=== PATIENT | female | born 1970 | race Two or more races ===

== ENCOUNTER 2024-03-05 13:58 | Emergency (ER) | payer OTHER ==
[~2024-03-05] VITALS: Ht 162.6 cm; Wt 108.9 kg
[2024-03-05] MEDS ORDERED: ONDANSETRON HCL/PF 4 MG/2 ML VIAL ONE (14:13)
[2024-03-05] MEDS ORDERED: MORPHINE SULFATE INJ 4 MG/ML DISP.SYRIN ONE (14:14)
[2024-03-05] MEDS ORDERED: MORPHINE SULFATE INJ 2 MG/ML DISP.SYRIN ONE (14:14)
[2024-03-05] MEDS: MORPHINE SULFATE INJ 2 MG/ML DISP.SYRIN IV ONE (14:18)
[2024-03-05] MEDS: ONDANSETRON HCL/PF 4 MG/2 ML VIAL IVP ONE (14:19)
[2024-03-05] MEDS ORDERED: IOHEXOL-300 100 ML VIAL IV ONE (14:41)
[2024-03-05] MEDS ORDERED: CT SWABBABLE VALVE TRANS SET 1 EA INFUS.SET MC ONE (14:41)
[2024-03-05] MEDS ORDERED: IV NS 0.9% 250 ML IV ONE (14:41)
[2024-03-05 14:42] LABS: BASOPHILS # (AUTO) 0.1 K/uL (0.0-0.2); BASOPHILS % (AUTO) 0.4 % (0.0-2.0); EOSINOPHILS # (AUTO) 0.1 K/uL (0.0-0.7); EOSINOPHILS % (AUTO) 0.4 % (0.0-6.0); HEMATOCRIT 42 % (33-45); HEMOGLOBIN 13.7 g/dL (11.5-14.8); LYMPHOCYTES # (AUTO) 1.2 K/uL (0.8-4.8); LYMPHOCYTES % (AUTO) 8.8 % (20.0-44.0); MEAN CORPUSCULAR HEMOGLOBIN 29 PG (26.0-33.0); MEAN CORPUSCULAR HGB CONC 33 g/dl (31.0-36.0); MEAN CORPUSCULAR VOLUME 86 fL (82-100); MONOCYTES # (AUTO) 0.6 K/uL (0.1-1.30); MONOCYTES % (AUTO) 4.1 % (2.0-12.0); NEUTROPHILS % (AUTO) 86.3 % (43.0-81.0); PLATELET COUNT (AUTO) 270 K/uL (150-450); RED BLOOD CELL COUNT(AUTO) 4.82 MIL/uL (4.0-5.2); RED CELL DISTRIBUTION WIDTH 14.1 % (11.5-15.0); WHITE BLOOD COUNT (AUTO) 13.9 K/uL (4.3-11.0)
[2024-03-05 15:01] LABS: CALCIUM, SERUM 8.5 mg/dL (8.5-10.1); CARBON DIOXIDE 26 mmol/L (21-32); CHLORIDE 104 mmol/L (98-107); CREATININE 0.8 mg/dL (0.6-1.3); GLUCOSE 147 mg/dL (74-106); POTASSIUM 3.8 mmol/L (3.5-5.1); SODIUM SERUM 141 mmol/L (136-145); UREA NITROGEN, BLOOD 12 mg/dL (7-18)
[2024-03-05 15:11] LABS: ALANINE AMINOTRANSFERASE 19 U/L (12-78); ALBUMIN 3.2 g/dL (3.4-5.0); ALKALINE PHOSPHATASE 88 U/L (46-116); ASPARTATE AMINOTRANSFERASE 14 U/L (15-37); BILIRUBIN,DIRECT 0.1 mg/dL (0.0-0.2); BILIRUBIN,TOTAL 0.2 mg/dL (0.2-1.0); LIPASE 28 U/L (16-77); TOTAL PROTEIN, SERUM 7.8 g/dL (6.4-8.2)
[2024-03-05 15:12] LABS: LACTIC ACID 3.2 mmol/L (0.4-2.0)
[2024-03-05] MEDS: PIPERACILLIN /TAZOBACTAM 3.375 G in IV D5W 50 ML IV ONE (15:50)
[2024-03-05] MEDS: VANCOMYCIN 1 GM in IV D5W 250 ML IV ONE (16:02)
[2024-03-05] MEDS ORDERED: diphenhydrAMINE HCL 50 MG/ML VIAL ONE (17:20)
[2024-03-05] MEDS ORDERED: methylPREDNISolone SOD SUCC 125 MG/2ML VIAL ONE (17:21)
[2024-03-05] MEDS: diphenhydrAMINE HCL 50 MG/ML VIAL IV ONE (17:26)
[2024-03-05 17:27] LABS: APPEARANCE,URINE CLEAR (CLEAR); BILIRUBIN,URINE NEGATIVE (NEGATIVE); BLOOD, URINE TRACE-INTA Ery/uL (NEGATIVE); COLOR,URINE YELLOW (YELLOW); KETONES,URINE NEGATIVE (NEGATIVE); LEUKOCYTE ESTERASE ,URINE NEGATIVE (NEGATIVE); NITRITE, URINE NEGATIVE (NEGATIVE); PROTEIN,URINE NEGATIVE (NEGATIVE); UGLUCOSE NEGATIVE (NEGATIVE); UROBILINOGEN,URINE 0.2 EU/dL (0.2)
[2024-03-05] MEDS: methylPREDNISolone SOD SUCC 125 MG/2ML VIAL IV ONE (17:27)
[2024-03-05 17:32] LABS: ADD URINE CULTURE NO; BACTERIA,URINE Few /HPF (None Seen); SQUAMOUS EPITHELIAL CELL,UR Few /HPF (None Seen); WBC,URINE 0-2 /HPF (0-3)
[2024-03-05 18:07] VITALS: BP 134/93; TEMP 98.4; O2SAT 99
== END 2024-03-05 18:21 | disposition short-term general hospital (02) ==
LOC: EDBD 14:10 → ER 14:10
DX: K42.9 Umbilical hernia without obstruction or gangrene (principal); E87.20 Acidosis, unspecified; I50.9 Heart failure, unspecified
CPT/HCPCS: 99291; 74177; 96365; 96375; 96368; 85025; 80048; 87040; 87086; 83605 ×2; 83690; 80076; 81001; 36415; J1200; J2270 ×2; J2919; J2405; J7050; A4223; Q9967